=== PATIENT | female | born 1950 | race Two or more races ===

== ENCOUNTER → 2017-01-08 | Outpatient (CLI) | payer OTHER | END | disposition home or self-care (01) | LOC: CFH 10:01 | PROVIDERS: ATTEND Family Medicine | DX: N63 Unspecified lump in breast (principal) | CPT/HCPCS: 76641; G0206 ==

== ENCOUNTER → 2017-01-10 | Outpatient (CLI) | payer OTHER ==
[~2017-01-10] MED LIST: LIDOCAINE 1%-EPI 1:100K, 20ML ONE; LIDOCAINE 2%, 20ML ONE
== END | disposition home or self-care (01) ==
LOC: CFH 15:16
PROVIDERS: ATTEND Family Medicine
DX: N63 Unspecified lump in breast (principal)
CPT/HCPCS: 19083; 88305; G0206; J3490

== ENCOUNTER 2017-01-24 07:31 | Day surgery (SDC) | payer OTHER ==
[~2017-01-24] VITALS: Ht 152.4 cm; Wt 56.4 kg
[2017-01-24] MEDS ORDERED: LIDOCAINE 1%, 20ML ONE (09:22)
[2017-01-24] MEDS ORDERED: LIDOCAINE 1%, 2ML ONE (09:45)
[2017-01-24 09:57] VITALS: BP 163/80
[2017-01-24] MEDS ORDERED: LACTATED RINGERS 1,000 ML IV SCH (10:02)
[2017-01-24] MEDS ORDERED: OMEP-110 PO (10:05)
[2017-01-24] MEDS ORDERED: METFORMIN PO (10:05)
[2017-01-24] MEDS ORDERED: EMPA10TA PO (10:05)
[2017-01-24] MEDS ORDERED: PRAV20TA2 PO (10:05)
[2017-01-24] MEDS ORDERED: LEVO88TA4 PO (10:05)
[2017-01-24] MEDS ORDERED: AMLODIPINE PO (10:05)
[2017-01-24] MEDS ORDERED: FENTANYL PF 100 MCG/2ML ONE ×2 (10:25→10:26)
[2017-01-24] MEDS ORDERED: MIDAZOLAM 1 MG/ML, 2ML ONE (10:26)
[2017-01-24 10:49] LABS: BLOOD UREA NITROGEN 11 mg/dL (7-18)
[2017-01-24 10:53] LABS: ASPARTATE AMINO TRANSFERASE 42 U/L (15-37)
[2017-01-24] MEDS ORDERED: BUPIVACAINE/PF 0.5% ONE (11:08)
[2017-01-24] MEDS ORDERED: EPINEPHRINE 1 MG/ML, 1ML ONE (11:09)
[2017-01-24] MEDS ORDERED: LIDOCAINE/PF 1%, 30ML ONE (11:09)
[2017-01-24] MEDS ORDERED: ISOSULFAN BLUE 10 MG/ML, 5ML IV ONE (11:09)
[2017-01-24] MEDS ORDERED: MEPERIDINE/PF 25MG/0.5ML IVPush PRN (11:30)
[2017-01-24] MEDS ORDERED: ONDANSETRON 2MG/ML, 2ML IVPush PRN (11:30)
[2017-01-24] MEDS ORDERED: OXYcodone 5 MG/5 ML ORAL.SOL UDC PO PRN (11:30)
[2017-01-24] MEDS ORDERED: LABETALOL 5MG/ML, 20ML IV PRN (11:30)
[2017-01-24] MEDS ORDERED: hydrALAzine 20 MG/ML, 1ML IV PRN (11:30)
[2017-01-24] MEDS ORDERED: HYDROmorphone 1 MG/ML, 1ML IV PRN (11:30)
[2017-01-24] MEDS ORDERED: PROMETHAZINE 25 MG/ML, 1ML IV PRN (11:30)
[2017-01-24] MEDS ORDERED: ACETAMINOPHEN 325 MG TABLET PO PRN (11:30)
[2017-01-24] MEDS ORDERED: PROPOFOL 10 MG/ML, 20ML ONE (11:47)
[2017-01-24] MEDS ORDERED: ROCURONIUM 10 MG/ML ONE (11:47)
[2017-01-24] MEDS ORDERED: CEFAZOLIN 1,000 MG ONE ×2 (11:47→11:48)
[2017-01-24] MEDS ORDERED: ONDANSETRON 2MG/ML, 2ML ONE (11:48)
[2017-01-24] MEDS ORDERED: NEOSTIGMINE 1 MG/ML, 10ML ONE (11:48)
[2017-01-24] MEDS ORDERED: GLYCOPYRROLATE 0.2MG/1ML, 5ML ONE ×2 (11:49)
[2017-01-24] MEDS: FENTANYL PF 100 MCG/2ML IV PRN ×2 (13:28→13:37)
[2017-01-24] MEDS ORDERED: OXYcodone/APAP 5/325MG TABLET ONE (16:53)
[2017-01-24] MEDS ORDERED: OXYcodone/APAP 5/325MG TABLET PO PRN (17:00)
== END 2017-01-24 17:25 ==
LOC: CFH 07:31 → OUT 17:25
PROVIDERS: ATTEND Surgery
DX: C50.912 Malignant neoplasm of unspecified site of left female breast (principal); Z98.890 Other specified postprocedural states; I10 Essential (primary) hypertension; E11.9 Type 2 diabetes mellitus without complications; E03.9 Hypothyroidism, unspecified
CPT/HCPCS: 19285; 19301; 36415; 38525; 38792; 80053; 82962; 88305; 88307; 88333; 93005; A9541; C1760; G0206; J0171; J0690; J2250; J2405; J2704; J2710; J3010; J3490; J7120

== ENCOUNTER → 2017-02-22 | Outpatient (CLI) | payer OTHER ==
[~2017-02-22] MED LIST changes: +AMLODIPINE PO; +EMPA10TA PO; +LEVO88TA4 PO; -LIDOCAINE 1%-EPI 1:100K, 20ML ONE; -LIDOCAINE 2%, 20ML ONE; +METFORMIN PO; +OMEP-110 PO; +PRAV20TA2 PO
== END | disposition home or self-care (01) ==
LOC: ROC 02-21 11:13
PROVIDERS: ATTEND Radiology Radiation Oncology
DX: C50.919 Malignant neoplasm of unspecified site of unspecified female breast (principal)
CPT/HCPCS: 99212; G0463

== ENCOUNTER → 2017-04-13 | Outpatient (CLI) | payer OTHER | END | disposition home or self-care (01) | LOC: CFH 09:21 | PROVIDERS: ATTEND Internal Medicine Hematology & Oncology | DX: Z13.820 Encounter for screening for osteoporosis (principal); M85.88 Other specified disorders of bone density and structure, other site; C50.412 Malignant neoplasm of upper-outer quadrant of left female breast | CPT/HCPCS: 77080 ==

== ENCOUNTER → 2017-05-31 | Outpatient (CLI) | payer MEDICAID, OTHER | END | disposition home or self-care (01) | LOC: ROC 11:14 | PROVIDERS: ATTEND Radiology Radiation Oncology | DX: Z08 Encounter for follow-up examination after completed treatment for malignant neoplasm (principal); C50.912 Malignant neoplasm of unspecified site of left female breast; Z79.82 Long term (current) use of aspirin; Z85.3 Personal history of malignant neoplasm of breast | CPT/HCPCS: 99213; G0463 ==

== ENCOUNTER → 2017-07-12 | Outpatient (CLI) | payer MEDICAID | END | disposition home or self-care (01) | LOC: CFH 14:31 | PROVIDERS: ATTEND Radiology Radiation Oncology | DX: Z12.31 Encounter for screening mammogram for malignant neoplasm of breast (principal); Z85.3 Personal history of malignant neoplasm of breast | CPT/HCPCS: 77063; 77067 ==

== ENCOUNTER → 2018-08-13 | Outpatient (CLI) | payer MEDICARE, MEDICAID | END | disposition home or self-care (01) | LOC: CFH 09:25 | PROVIDERS: ATTEND Internal Medicine Hematology & Oncology | DX: Z12.31 Encounter for screening mammogram for malignant neoplasm of breast (principal); Z85.3 Personal history of malignant neoplasm of breast; Z90.12 Acquired absence of left breast and nipple | CPT/HCPCS: 77063; 77067 ==

== ENCOUNTER 2019-05-15 11:21 | Outpatient (CLI) | payer MEDICARE, MEDICAID | END 2019-05-15 23:59 | disposition home or self-care (01) | LOC: CFH 11:21 | PROVIDERS: ATTEND Internal Medicine Hematology & Oncology | DX: M85.88 Other specified disorders of bone density and structure, other site (principal); C50.412 Malignant neoplasm of upper-outer quadrant of left female breast | CPT/HCPCS: 77080 ==

== ENCOUNTER → 2019-10-10 | Outpatient (CLI) | payer MEDICARE | END | disposition home or self-care (01) | LOC: CFH 09:59 | PROVIDERS: ATTEND Physician Assistant | DX: Z12.31 Encounter for screening mammogram for malignant neoplasm of breast (principal) | CPT/HCPCS: 77063; 77067 ==

== ENCOUNTER → 2020-10-20 | Outpatient (CLI) | payer MEDICARE ==
[~2020-10-20] MED LIST changes: +ANAS1TAB49 PO; +ATOR40TA PO; +CIPR500T4 PO; +EMPA25TA PO; +LEVO75TA5 PO; +LINA5TAB PO; +METR500T PO
== END | disposition home or self-care (01) ==
LOC: CFH 13:53
PROVIDERS: ATTEND Registered Nurse General Practice
DX: Z12.31 Encounter for screening mammogram for malignant neoplasm of breast (principal)
CPT/HCPCS: 77063; 77067